=== PATIENT | female | born 1940 | race Two or more races ===

== ENCOUNTER 2022-10-08 00:44 | Inpatient (IN) | payer MEDICARE, OTHER, MEDICAID ==
[~2022-10-08] VITALS: Ht 160 cm; Wt 83.0 kg
[~2022-10-08 00:44] MED LIST: ACET-2247 PO; AMIO200T68 PO; AMLO5TAB66 PO; ASPI-1450 PO; AUD NEB; BUME1TAB34 PO; CLOT15CR74 TP; CYCL-397 PO; DIPH25CA85 PO; GABA-1216 PO; GABA-583 PO; GUAIFDM PO; HYDR-4723 PO; LEVO25TA9 PO; LIDO700A15 TP; LOSA-382 PO; OLOP5DRO25 OU; POTA-202 PO; WARF1TAB9 PO; WARF2TAB30 PO
[2022-10-08] MEDS ORDERED: ATROPINE SULFATE 0.1 MG/ML 10 ML SYRINGE IVP ONE ×3 (01:00→01:30)
[2022-10-08 01:06] LABS: BASOPHILS % (AUTO) 0.7 % (0.0-2.0); EOSINOPHILS % (AUTO) 4.8 % (1.0-6.0); HEMATOCRIT 37.3 % (36-46); HEMOGLOBIN 11.9 g/dL (12.0-16.0); LYMPHOCYTES # (AUTO) 0.8 K/uL (1.0-4.8); LYMPHOCYTES % (AUTO) 10.7 % (22.0-44.0); MEAN CORPUSCULAR HEMOGLOBIN 27.7 pg (26.0-34.0); MEAN CORPUSCULAR HGB CONC 31.9 G/dL (31.0-37.0); MEAN CORPUSCULAR VOLUME 87 fL (80-100); MONOCYTES # (AUTO) 0.7 K/uL (0.1-1.0); MONOCYTES % (AUTO) 9.7 % (2.0-9.0); NEUTROPHILS # (AUTO) 5.6 K/uL (1.8-7.7); NEUTROPHILS % (AUTO) 74.1 % (40.0-70.0); PLATELET COUNT (AUTO) 227 K/uL (150-450); RED BLOOD CELL COUNT(AUTO) 4.29 MIL/uL (4.00-5.20); RED CELL DISTRIBUTION WIDTH 19.6 % (11.5-14.5)
[2022-10-08] MEDS ORDERED: ATROPINE SULFATE 1 MG/ML VIAL IVP ONE (01:30)
[2022-10-08 01:49] LABS: COVID AG,FIA SOURCE NASAL SWAB
[2022-10-08 02:03] LABS: INR 3.8 (0.9-1.1)
[2022-10-08 02:04] LABS: PROTHROMBIN TIME 38.1 SEC (9.4-11.6)
[2022-10-08 02:06] LABS: ALBUMIN 3.6 g/dL (3.4-5.0); BILIRUBIN,TOTAL 0.3 mg/dL (0.1-1.0); CALCIUM, TOTAL 8.6 mg/dL (8.8-10.5); CREATININE 2.02 mg/dL (0.60-1.30); TOTAL PROTEIN, SERUM 7.2 g/dL (6.4-8.2)
[2022-10-08 02:08] LABS: POTASSIUM 6.4 mmol/L (3.5-5.1)
[2022-10-08] MEDS ORDERED: INSULIN REGULAR, HUMAN 100 UNITS/ML IVP ONE (02:15)
[2022-10-08] MEDS ORDERED: SODIUM BICARBONATE [ADULT] 8.4% 50 MEQ/50 ML SYRINGE IVP ONE (02:15)
[2022-10-08] MEDS ORDERED: ALBUTEROL SULFATE 2.5 MG/0.5 ML NEB SOLUTION NEB ONE (02:15)
[2022-10-08] MEDS ORDERED: SODIUM ZIRCONIUM CYCLOSILICATE 5 GM POWDER PACKET PO ONE (02:15)
[2022-10-08] MEDS ORDERED: FUROSEMIDE 40 MG/4 ML VIAL IVP ONE (02:15)
[2022-10-08] MEDS ORDERED: DEXTROSE 50%-WATER 25 GM/50 ML SYRINGE IVP ONE (02:15)
[2022-10-08] MEDS ORDERED: CALCIUM GLUCONATE 1,000 MG in DEXTROSE 5%-WATER 50 ML IV ONE (02:15)
[2022-10-08] MEDS ORDERED: SODIUM POLYSTYRENE SULFONATE 15 GM/60 ML SUSPENSION BOTTLE PO ONE (02:15)
[2022-10-08 03:20] LABS: APPEARANCE,URINE CLEAR (CLEAR); BILIRUBIN,URINE NEGATIVE (NEGATIVE); GLUCOSE, URINE (UA) NEGATIVE (NEGATIVE); KETONES,URINE NEGATIVE (NEGATIVE); LEUKOCYTE ESTERASE ,URINE TRACE (NEGATIVE); NITRATE,URINE NEGATIVE (NEGATIVE); OCCULT BLOOD,URINE NEGATIVE (NEGATIVE); PROTEIN,URINE NEGATIVE (NEGATIVE); SPECIFIC GRAVITIY, URINE 1.013 (1.003-1.030); UROBILINOGEN,URINE <=1.0 mg/dL (<=1.0)
[2022-10-08 03:26] LABS: BACTERIA,URINE None Seen /HPF (None Seen); RBC,URINE 0-2 /HPF (0-2)
[2022-10-08 03:27] LABS: SQUAMOUS EPITHELIAL CELL,UR Few /LPF (None Seen)
[2022-10-08] MEDS ORDERED: 0.9% SODIUM CHLORIDE 10 ML SYRINGE IVP PRN (03:45)
[2022-10-08 06:08] LABS: ALBUMIN 3.9 g/dL (3.4-5.0); BILIRUBIN,TOTAL 0.3 mg/dL (0.1-1.0); CALCIUM, TOTAL 9.2 mg/dL (8.8-10.5); CREATININE 1.99 mg/dL (0.60-1.30); TOTAL PROTEIN, SERUM 7.4 g/dL (6.4-8.2)
[2022-10-08] MEDS ORDERED: MAGNESIUM HYDROXIDE SUSPENSION 30 ML UDCUP PO PRN (07:15)
[2022-10-08] MEDS ORDERED: ACETAMINOPHEN 325 MG TABLET PO PRN (07:15)
[2022-10-08] MEDS ORDERED: ONDANSETRON HCL 4 MG/2 ML VIAL IVP PRN (07:15)
[2022-10-08] MEDS ORDERED: MORPHINE SULFATE 2 MG/ML SYRINGE IVP PRN (07:15)
[2022-10-08] MEDS ORDERED: BISACODYL 10 MG RECTAL RECTAL SUPPOSITORY PR PRN (07:15)
[2022-10-08] MEDS ORDERED: HEPARIN SODIUM,PORCINE 5,000 UNITS/ML VIAL SQ SCH (08:00)
[2022-10-08 08:02] LABS: ANION GAP 4 mmol/L (8-16); CALCIUM, TOTAL 8.9 mg/dL (8.8-10.5); CARBON DIOXIDE 30 mmol/L (22-29); CHLORIDE 100 mmol/L (98-107); CREATININE 1.95 mg/dL (0.60-1.30); GLUCOSE,RANDOM 105 mg/dL (70-110); POTASSIUM 5.1 mmol/L (3.5-5.1); SODIUM SERUM 134 mmol/L (136-145); UREA NITROGEN, BLOOD 41 mg/dL (7-18)
[2022-10-08 08:03] LABS: GLOMERULAR FILTR. RATE CALC 25 mL/min (>60)
[2022-10-08] MEDS: DOCUSATE SODIUM 100 MG CAPSULE PO SCH ×2 (09:08→20:28)
[2022-10-08] MEDS: PANTOPRAZOLE SODIUM 40 MG DR TABLET PO SCH (09:08)
[2022-10-08] MEDS: ASPIRIN 81 MG CHEWABLE TABLET PO SCH (09:09)
[2022-10-08] MEDS ORDERED: *CLINICAL-WARFARIN SODIUM DOSING CLINICAL ONE (09:30)
[2022-10-08 10:06] LABS: DIGOXIN < 0.20 ng/mL (0.90-2.00)
[2022-10-08] MEDS ORDERED: SODIUM CHLORIDE 0.9% 1,000 ML IV ONE (10:15)
[2022-10-08 12:00] VITALS: BP 120/44
[2022-10-08] MEDS ORDERED: WARFARIN SODIUM-INR 2.0-3.0-RX DOSING PER PROTOCOL PO PRN (12:30)
[2022-10-08 13:04] LABS: CREATININE,URINE RANDOM 17.7 mg/dL (30.0-125.0)
[2022-10-08] MEDS ORDERED: INFLUENZA VIRUS VACCINE QVS 2022-23 (6MO+)/PF 60 MCG/0.5 ML SYRINGE IM. ONE (13:30)
[2022-10-08] MEDS ORDERED: METO25 PO (14:36)
[2022-10-08] MEDS ORDERED: FURO40 PO (14:36)
[2022-10-08] MEDS ORDERED: IPRAHFA IH (14:36)
[2022-10-08] MEDS ORDERED: SPIR-37 PO (14:36)
[2022-10-08] MEDS ORDERED: MULT-700 PO (14:36)
[2022-10-08] MEDS ORDERED: DAPA10TA PO (14:36)
[2022-10-08] MEDS ORDERED: GABA-1181 PO (14:36)
[2022-10-08] MEDS ORDERED: FERR325T27 PO (14:36)
[2022-10-08] MEDS ORDERED: TRAM-559 PO (14:36)
[2022-10-08] MEDS ORDERED: MELA5TAB40 PO (14:36)
[2022-10-08] MEDS ORDERED: POLY17PO47 PO (14:36)
[2022-10-08] MEDS ORDERED: CYAN500T56 PO (14:36)
[2022-10-08] MEDS ORDERED: WARF2TAB30 PO (14:36)
[2022-10-08] MEDS ORDERED: AMIO200T68 PO (14:36)
[2022-10-08 16:00] VITALS: BP 130/70
[2022-10-08 20:00] VITALS: BP 130/60
[2022-10-08] MEDS: SODIUM CHLORIDE 0.9% 1,000 ML IV SCH (20:29)
[2022-10-08] MEDS: ETHYL ALCOHOL 62% ANTISEPTIC NASAL SANITIZER 0.6 ML AMPUL NASAL SCH (22:08)
[2022-10-09] VITALS (7 sets, daily range): BP systolic 128–171; BP diastolic 59–148
[2022-10-09 05:52] LABS: BASOPHILS % (AUTO) 0.5 % (0.0-2.0); EOSINOPHILS % (AUTO) 5.6 % (1.0-6.0); HEMOGLOBIN 10.7 g/dL (12.0-16.0); LYMPHOCYTES # (AUTO) 0.5 K/uL (1.0-4.8); MEAN CORPUSCULAR HEMOGLOBIN 28.7 pg (26.0-34.0); MEAN CORPUSCULAR HGB CONC 32.5 G/dL (31.0-37.0); MEAN CORPUSCULAR VOLUME 88 fL (80-100); MONOCYTES # (AUTO) 0.5 K/uL (0.1-1.0); MONOCYTES % (AUTO) 8.4 % (2.0-9.0); NEUTROPHILS # (AUTO) 4.4 K/uL (1.8-7.7); NEUTROPHILS % (AUTO) 77.5 % (40.0-70.0); PLATELET COUNT (AUTO) 173 K/uL (150-450); RED BLOOD CELL COUNT(AUTO) 3.73 MIL/uL (4.00-5.20); RED CELL DISTRIBUTION WIDTH 18.9 % (11.5-14.5)
[2022-10-09] MEDS: SODIUM CHLORIDE 0.9% 1,000 ML IV SCH ×2 (05:57→18:50)
[2022-10-09 06:01] LABS: INR 2.5 (0.9-1.1); PROTHROMBIN TIME 25.6 SEC (9.4-11.6)
[2022-10-09 06:23] LABS: CALCIUM, TOTAL 8.7 mg/dL (8.8-10.5); CREATININE 1.27 mg/dL (0.60-1.30); MAGNESIUM 2.6 mg/dL (1.80-2.40); PHOSPHORUS 4.1 mg/dL (2.5-4.9); POTASSIUM 4.7 mmol/L (3.5-5.1); THYROID STIMULATING HORMONE 22.93 uIU/mL (0.36-3.74)
[2022-10-09] MEDS ORDERED: LEVOTHYROXINE SODIUM 25 MCG TABLET PO SCH (06:30)
[2022-10-09] MEDS ORDERED: LEVOTHYROXINE SODIUM 50 MCG TABLET PO ONE (07:45)
[2022-10-09] MEDS: ASPIRIN 81 MG CHEWABLE TABLET PO SCH (08:08)
[2022-10-09] MEDS: PANTOPRAZOLE SODIUM 40 MG DR TABLET PO SCH (08:08)
[2022-10-09] MEDS: DOCUSATE SODIUM 100 MG CAPSULE PO SCH ×2 (08:08→19:41)
[2022-10-09 10:31] LABS: FREE T4 (FREE THYROXINE) 0.61 ng/dL (0.76-1.46)
[2022-10-09] MEDS: ETHYL ALCOHOL 62% ANTISEPTIC NASAL SANITIZER 0.6 ML AMPUL NASAL SCH ×2 (10:35→20:01)
[2022-10-09] MEDS ORDERED: WARFARIN SODIUM 2 MG TABLET PO SCH (17:00)
[2022-10-09] MEDS: ZOLPIDEM TARTRATE 5 MG TABLET PO PRN (22:19)
[2022-10-09] MEDS: HYDROCODONE/ACETAMINOPHEN 5-325 MG TABLET PO PRN (22:19)
[2022-10-10 01:03] VITALS: BP 145/71
[2022-10-10 05:37] VITALS: BP 154/65
[2022-10-10] MEDS: LEVOTHYROXINE SODIUM 75 MCG TABLET PO SCH (06:19)
[2022-10-10 06:49] LABS: BASOPHILS % (AUTO) 1.3 % (0.0-2.0); EOSINOPHILS % (AUTO) 6.7 % (1.0-6.0); HEMATOCRIT 35.4 % (36-46); HEMOGLOBIN 11.1 g/dL (12.0-16.0); LYMPHOCYTES # (AUTO) 1.5 K/uL (1.0-4.8); LYMPHOCYTES % (AUTO) 26.6 % (22.0-44.0); MEAN CORPUSCULAR HEMOGLOBIN 23.6 pg (26.0-34.0); MEAN CORPUSCULAR HGB CONC 31.4 G/dL (31.0-37.0); MEAN CORPUSCULAR VOLUME 75 fL (80-100); MONOCYTES # (AUTO) 0.7 K/uL (0.1-1.0); MONOCYTES % (AUTO) 12.2 % (2.0-9.0); NEUTROPHILS % (AUTO) 53.2 % (40.0-70.0); PLATELET COUNT (AUTO) 255 K/uL (150-450); RED CELL DISTRIBUTION WIDTH 17.9 % (11.5-14.5)
[2022-10-10 07:49] LABS: INR 2.3 (0.9-1.1)
[2022-10-10 07:51] VITALS: BP 115/51
[2022-10-10 08:00] LABS: ANION GAP 3 mmol/L (8-16); CALCIUM, TOTAL 8.8 mg/dL (8.8-10.5); CARBON DIOXIDE 27 mmol/L (22-29); CHLORIDE 106 mmol/L (98-107); CREATININE 0.82 mg/dL (0.60-1.30); GLUCOSE,RANDOM 90 mg/dL (70-110); PHOSPHORUS 2.6 mg/dL (2.5-4.9); POTASSIUM 4.3 mmol/L (3.5-5.1); SODIUM SERUM 136 mmol/L (136-145); UREA NITROGEN, BLOOD 13 mg/dL (7-18)
[2022-10-10 08:01] LABS: GLOMERULAR FILTR. RATE CALC > 60 mL/min (>60)
[2022-10-10] MEDS: ASPIRIN 81 MG CHEWABLE TABLET PO SCH (08:37)
[2022-10-10] MEDS: SODIUM CHLORIDE 0.9% 1,000 ML IV SCH (08:37)
[2022-10-10] MEDS: PANTOPRAZOLE SODIUM 40 MG DR TABLET PO SCH (08:38)
[2022-10-10] MEDS: DOCUSATE SODIUM 100 MG CAPSULE PO SCH ×2 (08:38→19:20)
[2022-10-10 11:20] VITALS: BP 163/73
[2022-10-10 14:00] LABS: COVID AG,FIA SOURCE NASAL SWAB
[2022-10-10] MEDS ORDERED: WARFARIN SODIUM 2 MG TABLET PO SCH (17:00)
[2022-10-10 19:44] VITALS: BP 158/81
[2022-10-10] MEDS: HYDROCODONE/ACETAMINOPHEN 5-325 MG TABLET PO PRN (20:14)
[2022-10-10] MEDS ORDERED: PEG 400/HYPROMELLOSE/GLYCERIN 15 ML OPHTHALMIC SOLUTION OU PRN (23:15)
[2022-10-10] MEDS: ZOLPIDEM TARTRATE 5 MG TABLET PO PRN (23:25)
[2022-10-10 23:49] VITALS: BP 153/76
[2022-10-11 03:53] VITALS: BP 130/54
[2022-10-11] MEDS: LEVOTHYROXINE SODIUM 75 MCG TABLET PO SCH (06:17)
[2022-10-11 07:03] LABS: INR 2.1 (0.9-1.1); PROTHROMBIN TIME 21.7 SEC (9.4-11.6)
[2022-10-11] MEDS: ASPIRIN 81 MG CHEWABLE TABLET PO SCH (08:18)
[2022-10-11] MEDS: PANTOPRAZOLE SODIUM 40 MG DR TABLET PO SCH (08:18)
[2022-10-11] MEDS: DOCUSATE SODIUM 100 MG CAPSULE PO SCH (08:19)
[2022-10-11 09:48] VITALS: BP 140/74
[2022-10-11 12:19] VITALS: BP 140/71
[2022-10-11] MEDS ORDERED: LEVO75TA PO (14:52)
[2022-10-11] MEDS ORDERED: WARFARIN SODIUM 2 MG TABLET PO ONE (17:00)
== END 2022-10-11 16:20 | DRG 682 ==
LOC: EMS 00:44 → ICU 08:25 → 5N 10-09 20:24
PROVIDERS: ADMIT Internal Medicine; ATTEND Internal Medicine
DX: N17.9 Acute kidney failure, unspecified (principal); G93.41 Metabolic encephalopathy; I50.33 Acute on chronic diastolic (congestive) heart failure; I13.0 Hypertensive heart and chronic kidney disease with heart failure and stage 1 through stage 4 chronic kidney disease, or unspecified chronic kidney disease; I48.20 Chronic atrial fibrillation, unspecified; E87.5 Hyperkalemia; I44.7 Left bundle-branch block, unspecified; D64.9 Anemia, unspecified; E03.9 Hypothyroidism, unspecified; E78.5 Hyperlipidemia, unspecified; R79.1 Abnormal coagulation profile; G20 Parkinson's disease; N18.9 Chronic kidney disease, unspecified; Z20.822 Contact with and (suspected) exposure to COVID-19; I48.0 Paroxysmal atrial fibrillation; R00.1 Bradycardia, unspecified; Z79.01 Long term (current) use of anticoagulants; Z85.3 Personal history of malignant neoplasm of breast; Z86.73 Personal history of transient ischemic attack (TIA), and cerebral infarction without residual deficits; Z95.3 Presence of xenogenic heart valve; Z79.899 Other long term (current) drug therapy; Z88.7 Allergy status to serum and vaccine; Z79.82 Long term (current) use of aspirin
CPT/HCPCS: 51702; 70450; 71045; 76770; 80048; 80053; 80162; 81001; 82550; 82570; 83735; 83880; 84100; 84156; 84300; 84439; 84443; 84484; 85025; 85610; 85730; 87081; 87481; 93005; 93306; 94060; 94640; 97162; 99291; G0378; J0461; J0610; J1644; J1815; J1940; J3490; J7030; J7060; Q9967; 36415-L1; 36415-TC; J7613

== ENCOUNTER 2022-12-09 01:46 | Emergency (ER) | payer MEDICARE, MEDICAID, OTHER ==
[~2022-12-09] VITALS: Ht 154.9 cm; Wt 78.2 kg
[~2022-12-09 01:46] MED LIST changes: -ACET-2247 PO; -AMIO200T68 PO; -AMLO5TAB66 PO; -ASPI-1450 PO; -AUD NEB; -BUME1TAB34 PO; +CYAN500T56 PO; -CYCL-397 PO; +DAPA10TA PO; -DIPH25CA85 PO; +FERR325T27 PO; +FURO40 PO; +GABA-1181 PO; -GABA-1216 PO; -GABA-583 PO; -GUAIFDM PO; -HYDR-4723 PO; +IPRAHFA IH; -LEVO25TA9 PO; +LEVO75TA PO; -LIDO700A15 TP; -LOSA-382 PO; +MELA5TAB40 PO; +MULT-700 PO; -OLOP5DRO25 OU; +POLY17PO47 PO; -POTA-202 PO; +TRAM-559 PO; -WARF1TAB9 PO
[2022-12-09] MEDS ORDERED: HYDROCODONE/ACETAMINOPHEN 5-325 MG TABLET PO ONE (03:30)
[2022-12-09 05:08] LABS: BASOPHILS % (AUTO) 0.8 % (0.0-2.0); EOSINOPHILS % (AUTO) 1.2 % (1.0-6.0); HEMATOCRIT 38.4 % (36-46); HEMOGLOBIN 12.7 g/dL (12.0-16.0); LYMPHOCYTES # (AUTO) 0.6 K/uL (1.0-4.8); LYMPHOCYTES % (AUTO) 7.9 % (22.0-44.0); MEAN CORPUSCULAR HEMOGLOBIN 28.7 pg (26.0-34.0); MEAN CORPUSCULAR VOLUME 87 fL (80-100); MONOCYTES # (AUTO) 0.6 K/uL (0.1-1.0); MONOCYTES % (AUTO) 7.2 % (2.0-9.0); NEUTROPHILS # (AUTO) 6.5 K/uL (1.8-7.7); NEUTROPHILS % (AUTO) 82.9 % (40.0-70.0); PLATELET COUNT (AUTO) 196 K/uL (150-450); RED BLOOD CELL COUNT(AUTO) 4.42 MIL/uL (4.00-5.20); RED CELL DISTRIBUTION WIDTH 15.5 % (11.5-14.5)
[2022-12-09 05:24] LABS: ALANINE AMINOTRANSFERASE 23 U/L (12-78); ALBUMIN 3.3 g/dL (3.4-5.0); ALKALINE PHOSPHATASE 91 U/L (46-116); ANION GAP 7 mmol/L (8-16); ASPARTATE AMINOTRANSFERASE 28 U/L (15-37); CALCIUM, TOTAL 8.8 mg/dL (8.8-10.5); CARBON DIOXIDE 31 mmol/L (22-29); CHLORIDE 105 mmol/L (98-107); CREATINE KINASE, TOTAL ONLY 42 U/L (26-192); CREATININE 0.75 mg/dL (0.60-1.30); GLOMERULAR FILTR. RATE CALC > 60 mL/min (>60); GLUCOSE,RANDOM 103 mg/dL (70-110); SODIUM SERUM 143 mmol/L (136-145); TOTAL PROTEIN, SERUM 6.8 g/dL (6.4-8.2); UREA NITROGEN, BLOOD 12 mg/dL (7-18)
[2022-12-09 05:26] LABS: INR 2.6 (0.9-1.1); POTASSIUM 2.5 mmol/L (3.5-5.1); PROTHROMBIN TIME 26.2 SEC (9.4-11.6)
[2022-12-09] MEDS ORDERED: POTASSIUM CHLORIDE 20 MEQ ER TABLET PO ONE (05:45)
[2022-12-09 05:50] LABS: B-TYPE NATRIURETIC PEPTIDE 494 pg/mL (0-100)
[2022-12-09 06:37] VITALS: BP 149/95
== END 2022-12-09 07:54 | disposition home or self-care (01) ==
LOC: EMS 01:48
DX: E87.6 Hypokalemia (principal); R51.9 Headache, unspecified; M54.2 Cervicalgia; I48.91 Unspecified atrial fibrillation; I11.0 Hypertensive heart disease with heart failure; I50.9 Heart failure, unspecified; Z98.890 Other specified postprocedural states
CPT/HCPCS: 70450; 71045; 72125; 80053; 82550; 83880; 84484; 85025; 85610; 85730; 93005; 99285; 36415-L1; 36415-TC

== ENCOUNTER 2025-09-02 08:31 | Emergency (ER) | payer MEDICARE, OTHER ==
[~2025-09-02] VITALS: Ht 157.5 cm; Wt 56.8 kg
[~2025-09-02 08:31] MED LIST changes: +ACET-66 PO; +AMLO2.5T29 PO; +APIX5TAB PO; +BACL10TA PO; -CLOT15CR74 TP; +DIGO125T72 PO; +FURO20TA4 PO; -FURO40 PO; +HYDR-4062 PO; +LEVO50TA11 PO; -LEVO75TA PO; +METO25 PO; +MIRT-93 PO; -MULT-700 PO; +POTA-92 PO; -TRAM-559 PO; -WARF2TAB30 PO
[2025-09-02 08:40] VITALS: TEMP 97.9
[2025-09-02] MEDS ORDERED: KETOROLAC TROMETHAMINE 30 MG/ML VIAL IM ONE (09:00)
[2025-09-02] MEDS: KETOROLAC TROMETHAMINE 30 MG/ML VIAL IVP ONE (09:19)
[2025-09-02] MEDS ORDERED: PERCT PO (09:39)
[2025-09-02 09:45] VITALS: BP 129/82; PULSE 82; RESP 18; O2SAT 97
== END 2025-09-02 11:59 | disposition home or self-care (01) ==
LOC: EMS 08:31
DX: M79.18 Myalgia, other site (principal); M25.552 Pain in left hip; E03.9 Hypothyroidism, unspecified; G20.A1 Parkinson's disease without dyskinesia, without mention of fluctuations; I11.0 Hypertensive heart disease with heart failure; I48.91 Unspecified atrial fibrillation; M19.90 Unspecified osteoarthritis, unspecified site; Z79.01 Long term (current) use of anticoagulants; Z85.3 Personal history of malignant neoplasm of breast; Z86.73 Personal history of transient ischemic attack (TIA), and cerebral infarction without residual deficits; Z90.10 Acquired absence of unspecified breast and nipple; Z79.899 Other long term (current) drug therapy
CPT/HCPCS: 99283; 96374; 73503; J1885